=== PATIENT | female | born 1955 | race Caucasian/White ===

== ENCOUNTER 2024-01-06 19:24 | Emergency (ER) | payer BC, MEDICAID ==
[~2024-01-06] VITALS: Ht 165.1 cm; Wt 96.0 kg
[2024-01-06] MEDS: ketorolac trometh 15mg/ml vial 15 MG/ML ML IM ONE (21:33)
[2024-01-06] MEDS ORDERED: IBUP-1985 PO (21:33)
[2024-01-06 21:51] VITALS: BP 106/46; PULSE 75; RESP 16; TEMP 98.2; O2SAT 97
== END 2024-01-06 21:54 | disposition home or self-care (01) ==
LOC: ER 19:26
DX: S70.01XA Contusion of right hip, initial encounter (principal); Z88.8 Allergy status to other drugs, medicaments and biological substances; W19.XXXA Unspecified fall, initial encounter; Y93.89 Activity, other specified; Y92.89 Other specified places as the place of occurrence of the external cause; Y99.8 Other external cause status
CPT/HCPCS: 73502; 96372; 99284; J1885